=== PATIENT | male | born 1995 | race Caucasian/White ===

== ENCOUNTER 2021-01-25 05:16 | Emergency (ER) | payer OTHER ==
[~2021-01-25] VITALS: Ht 177.8 cm; Wt 104.3 kg
[~2021-01-25 05:16] MED LIST: AMBIEN 10 MG TA10 MG PO; BUSPAR30 MG PO; CONCERTA18 M1 PO; INDERAL LA120 M1 PO; LATUDA20 MG PO; PROZAC20 M1 PO; SEROQUEL200 MG PO; VISTARIL 25 MG25 M1 PO
[2021-01-25] MEDS ORDERED: SUBOXONE 8 MG-1 EAC3 SUBLING (05:30)
[2021-01-25] MEDS ORDERED: CEPHALEXIN500 MG PO (06:19)
[2021-01-25 06:35] VITALS: BP 131/80
== END 2021-01-25 06:36 | disposition home or self-care (01) ==
LOC: M.ERS 05:16
DX: S91.112A Laceration without foreign body of left great toe without damage to nail, initial encounter (principal); F31.9 Bipolar disorder, unspecified; F25.9 Schizoaffective disorder, unspecified; Z79.899 Other long term (current) drug therapy; Z88.0 Allergy status to penicillin; W45.8XXA Other foreign body or object entering through skin, initial encounter; Y93.01 Activity, walking, marching and hiking; Y92.89 Other specified places as the place of occurrence of the external cause; Y99.8 Other external cause status